=== PATIENT | male | born 1940 | race American Indian/Alaskan Native ===

== ENCOUNTER 2016-12-31 12:51 | Emergency (ER) | payer MEDICARE ==
[2016-12-31] MEDS ORDERED: ZOFRAN IV ONE (13:22)
[2016-12-31] MEDS ORDERED: MORPHINE IV ONE (13:22)
--- NOTE | 2016-12-31 13:28 | Emergency Department Report ---
ED Neck Pain/Injury HPI - General Chief Complaint: Chest Pain Stated Complaint: CHEST PAIN Time Seen by Provider: 12/31/16 13:18 Mode of arrival: Stretcher Limitations: Physical Limitation - History of Present Illness Initial Comments: Patient is a 76-year-old male history of diabetes and high blood pressure came today with neck pain radiates to his right arm and forearm started yesterday when he wake up from sleep patient stated that he is having difficulty turning his head. Denied any fever headache chest pain shortness of breath or any other symptoms. MD Complaint: neck pain, upper back pain -: Last night Radiation: right upper extremity Severity: severe Severity scale (0 -10): 8 Quality: stabbing Improves With: remaining still Worsens With: movement of extremity Context: unknown Associated Symptoms: none - Related Data Home Medications Medication Instructions Recorded Confirmed Last Taken Amlodipine Besylate [Norvasc] 10 mg PO DAILY 02/25/13 12/31/16 02/24/13 Atorvastatin Calcium [Lipitor] 20 mg PO QHS 02/25/13 12/31/16 02/24/13 Hydrochlorothiazide 12.5 mg PO DAILY 02/25/13 12/31/16 02/24/13 Quinapril HCl 40 mg PO QDAY 02/25/13 12/31/16 02/24/13 Previous Rx's Medication Instructions Recorded Last Taken Type HYDROcodone/APAP 5-325 [Iona 1 each PO Q6HR PRN #14 tablet 12/31/16 Unknown Rx 5/325] Metaxalone [Skelaxin] 800 mg PO TID #30 tablet 12/31/16 Unknown Rx Ondansetron [Zofran Odt] 4 mg PO Q8HR PRN #14 tab.rapdis 12/31/16 Unknown Rx Allergies Allergy/AdvReac Type Severity Reaction Status Date / Time No Known Allergies Allergy Verified 12/31/16 13:03 ED Review of Systems ROS: Stated complaint: CHEST PAIN Other details as noted in HPI Comment: All other systems reviewed and negative Constitutional: denies: chills, fever Respiratory: denies: cough, orthopnea, shortness of breath, SOB with exertion, SOB at rest, stridor Cardiovascular: denies: chest pain, palpitations, dyspnea on exertion, orthopnea , edema, syncope Gastrointestinal: denies: abdominal pain, nausea, vomiting, diarrhea, constipation, hematemesis, hematochezia Genitourinary: denies: urgency, dysuria Neurological: denies: headache, weakness, numbness, paresthesias, confusion, abnormal gait, vertigo ED Past Medical Hx - Past Medical History Previous Medical History?: Yes Hx Hypertension: Yes Hx Arthritis: Yes - Social History Smoking Status: Never Smoker Substance Use Type: None - Medications Home Medications: Home Medications Medication Instructions Recorded Confirmed Last Taken Type Amlodipine Besylate [Norvasc] 10 mg PO DAILY 02/25/13 12/31/16 02/24/13 History Atorvastatin Calcium [Lipitor] 20 mg PO QHS 02/25/13 12/31/16 02/24/13 History Hydrochlorothiazide 12.5 mg PO DAILY 02/25/13 12/31/16 02/24/13 History Quinapril HCl 40 mg PO QDAY 02/25/13 12/31/16 02/24/13 History HYDROcodone/APAP 5-325 [Iona 1 each PO Q6HR PRN #14 tablet 12/31/16 Unknown Rx 5/325] Metaxalone [Skelaxin] 800 mg PO TID #30 tablet 12/31/16 Unknown Rx Ondansetron [Zofran Odt] 4 mg PO Q8HR PRN #14 tab.rapdis 12/31/16 Unknown Rx ED Physical Exam - General Limitations: Physical Limitation General appearance: alert - Head Head exam: Present: atraumatic, normocephalic - Eye Eye exam: Present: normal appearance, PERRL, EOMI - ENT ENT exam: Present: normal exam, normal orophraynx - Neck Neck exam: Present: normal inspection, tenderness, other (significantly decrease range of motion). Absent: meningismus, full ROM, lymphadenopathy, thyromegaly - Respiratory Respiratory exam: Present: normal lung sounds bilaterally. Absent: respiratory distress, wheezes, rales, rhonchi, stridor, chest wall tenderness, accessory muscle use, decreased breath sounds - Cardiovascular Cardiovascular Exam: Present: tachycardia - GI/Abdominal GI/Abdominal exam: Present: soft, normal bowel sounds. Absent: tenderness, guarding, rebound, rigid, organomegaly, mass, bruit, pulsatile mass, hernia - Extremities Exam Extremities exam: Present: normal inspection, full ROM, normal capillary refill. Absent: tenderness - Back Exam Back exam: Present: normal inspection, muscle spasm (upper back). Absent: tenderness, CVA tenderness (R), CVA tenderness (L), paraspinal tenderness, vertebral tenderness - Neurological Exam Neurological exam: Present: alert, oriented X3, CN II-XII intact, normal gait, reflexes normal. Absent: motor sensory deficit - Skin Skin exam: Present: warm, intact, normal color ED Course Vital Signs 12/31/16 13:03 Temperature 98.2 F - Reevaluation(s) Reevaluation #1: 12/31/16 15:55 Patient stated that his feeling better he's able to move his neck. Denied any chest pain or shortness of breath. ED Medical Decision Making - Lab Data Result diagrams: 12/31/16 14:08 12/31/16 14:08 - EKG Data -: EKG Interpreted by Me EKG shows normal: sinus rhythm Rate: tachycardia - EKG Data Interpretation: no acute changes - Radiology Data Radiology results: report reviewed CT neck came back negative for acute abnormality EXCEPT for advanced degenerative disc disease - Medical Decision Making Patient stated that her his symptoms improving his range of motion is much better. Advised patient to follow-up with his primary care physician for further workup which included MRI and neck. Patient does not have any neurological deficit at this point. Critical care attestation.: If time is entered above; I have spent that time in minutes in the direct care of this critically ill patient, excluding procedure time. ED Disposition Clinical Impression: Chest pain, Neck pain, acute Disposition: DC-01 TO HOME OR SELFCARE Is pt being admited?: No Condition: Stable Instructions: Chest Pain (ED), Cervical Radiculopathy (ED)
--- NOTE | 2016-12-31 14:13 | Cat Scan Report ---
CT SCAN OF THE CERVICAL SPINE: HISTORY: Neck pain. TECHNIQUE: Contiguous 1.25 mm axial images of the cervical spine were obtained. Sagittal and coronal reformatted images. FINDINGS: No comparison. There is reversal of the normal cervical lordosis. Moderate to severe multilevel degenerative disc disease and facet arthropathy are identified. All levels are affected. C5-6 and C6-7 appear to be the most disc levels. C3-4 and C4-5 are the most affected facet joints. There is multilevel neural foraminal narrowing. No central canal narrowing is appreciated. No evidence for fracture, malalignment or bone lesion. IMPRESSION: Advanced cervical spondylosis. No acute process is noted.
[2016-12-31 14:28] LABS: Basophils % (Auto) 0.6 % (0.0-1.8); Eosinophils % (Auto) 1.8 % (0.0-4.3); Hematocrit 39.5 % (35.5-45.6); Hemoglobin 13.4 gm/dl (11.8-15.2); Mean Corpuscular HGB Conc 34 % (32-34); Mean Corpuscular Hemoglobin 31 pg (28-32); Mean Corpuscular Volume 90 fl (84-94); Platelet Count 389 K/mm3 (140-440); Red Blood Count 4.38 M/mm3 (3.65-5.03); Red Cell Distribution Width 14.3 % (13.2-15.2); White Blood Count 9.6 K/mm3 (4.5-11.0)
[2016-12-31 14:42] LABS: Anion Gap 18 mmol/L; BUN/Creatinine Ratio 13.63; Blood Urea Nitrogen 15 mg/dL (9-20); Calcium 9.6 mg/dL (8.4-10.2); Carbon Dioxide 28 mmol/L (22-30); Chloride 98.9 mmol/L (98-107); Glucose 103 mg/dL (75-100); Potassium 3.3 mmol/L (3.6-5.0); Sodium 142 mmol/L (137-145)
== END 2016-12-31 16:28 | disposition home or self-care (01) ==
LOC: EDBD → ED 12:51
DX: R07.9 Chest pain, unspecified (principal); M54.2 Cervicalgia; I10 Essential (primary) hypertension; M19.90 Unspecified osteoarthritis, unspecified site
CPT/HCPCS: 36415; 72125; 80048; 84484; 85025; 93005; 93010; 96374; 96375; 99285; J2270; J2405; J2930